=== PATIENT | male | born 1950 | race Two or more races ===

== ENCOUNTER 2024-10-16 16:15 | Emergency (ER) | payer OTHER, BC ==
[~2024-10-16] VITALS: Ht 182.9 cm; Wt 88.5 kg
[2024-10-16] MEDS ORDERED: TAMS0.4C PO (16:50)
[2024-10-16] MEDS ORDERED: PROSCAR5 MG PO (16:50)
[2024-10-16] MEDS ORDERED: ECOTRIN81 MG PO (16:51)
[2024-10-16] MEDS ORDERED: ANALPRAM HC 2.530 GM RECTAL (18:23)
[2024-10-16] MEDS ORDERED: DEXAMETHASONE SODIUM PHOSP/PF 10 MG/ML VIAL IJ ONE (18:30)
[2024-10-16] MEDS ORDERED: DEXAMETHASONE SODIUM PHOSPHATE 4 MG/ML VIAL ONE (18:43)
== END 2024-10-16 20:19 | disposition home or self-care (01) ==
LOC: ER 16:18
DX: K64.8 Other hemorrhoids (principal); N40.0 Benign prostatic hyperplasia without lower urinary tract symptoms
CPT/HCPCS: 96372; 99282; J1100